=== PATIENT | female | born 1940 | race Caucasian/White ===

== ENCOUNTER 2018-04-07 11:35 | Inpatient (IN) ==
--- NOTE | 2018-04-07 12:12 | Emergency Department Note ---
General Adult HPI - General Source: RN notes reviewed Mode of arrival: EMS Limitations: no limitations <Holly Iyer - Last Filed: 04/07/18 14:05> <Marialuisa Rojas - Last Filed: 04/07/18 15:31> - General Chief complaint: Altered Mental Status Stated complaint: weakness, confusion Time Seen by Provider: 04/07/18 11:40 - History of Present Illness HPI Narrative: 77-year-old female in ED from [facility]. Patient advises she does not know why she is here. Patient states she is normally ambulatory. Patient states she has no pain, no difficulty breathing, no shortness of breath. Patient does know that she is in the ER at [facility] but does not know why. Staff advised patient has become increasingly more confused. She did have a urinary tract infection end of February which she was placed on doxycycline and finished her last dose March 30. (Holly Iyer) - Related Data Home Medications Medication Instructions Recorded Confirmed Acetaminophen [Acetaminophen ER] 650 mg PO Q4HP PRN 11/09/17 12/02/17 Fluticasone Hfa 110Mcg [Flovent 3 puff INH BIDP PRN 11/09/17 12/02/17 Hfa 110Mcg] Losartan Potassium [Cozaar] 100 mg PO QDAY 11/09/17 12/02/17 Proair Hfa 1 - 2 puff INH Q4-6HP PRN 11/09/17 12/02/17 Varenicline Tartrate [Chantix] 1 tab PO BID 11/09/17 12/02/17 Bisacodyl [Dulcolax] 10 mg NC DAILYP PRN 12/02/17 12/02/17 Fluticasone/Salmeterol [Advair 1 puff INH BID 12/02/17 12/02/17 250-50 Diskus] Glatiramer Acetate [Copaxone] 40 mg SQ .COMPLEX 12/02/17 12/02/17 Na Phos,M-B/Na Phos,Di-Ba [Fleets 1 dose NC DAILYP PRN 12/02/17 12/02/17 Adult] Warfarin [Coumadin] 4 mg PO QDAY 12/02/17 12/02/17 Previous Rx's Medication Instructions Recorded fluticasone-salmeterol 115 mcg-21 2 inh INHALATION Q12H #12 g 03/14/17 mcg/actuation HFA aerosol inhaler famotidine 20 mg tablet 20 mg PO BID #180 tab 08/02/17 fluoxetine 20 mg capsule 60 mg PO QDAY #90 cap 08/08/17 folic acid 1 mg tablet 1 mg PO QDAY #90 tab 09/06/17 HYDROcodone/APAP 5/325MG [[place] 1 tab PO Q4HP PRN #20 tab 11/07/17 5-325Mg] Docusate Sodium [Colace] 100 mg PO BID #60 cap 11/13/17 ALPRAZolam [Xanax] 0.5 mg PO QHS #30 tab 11/14/17 Multivitamin [One Daily] 1 each PO DAILY #90 tab 11/14/17 Azithromycin [Zithromax] 250 mg PO DAILY #4 tab 12/02/17 predniSONE [Prednisone] 20 mg PO DAILY #23 tab 12/02/17 Acetaminophen [Tylenol Extra 500 mg PO Q6H PRN #30 tab 03/24/18 Strength] Allergies Allergy/AdvReac Type Severity Reaction Status Date / Time Erythromycin Base Allergy Severe Swelling Verified 03/24/18 03:28 of Lip/Tongue/Throat Penicillins Allergy Severe Anaphylaxis Verified 03/24/18 03:28 Cefaclor [From Ceclor] Allergy Mild skin Verified 03/24/18 03:28 reaction codeine AdvReac Intermediate Hallucinati Verified 03/24/18 03:28 ng Sulfa (Sulfonamide AdvReac Intermediate Unresponsiv Verified 03/24/18 03:28 Antibiotics) e rivaroxaban [From Xarelto] AdvReac Mild Dizziness Verified 03/24/18 03:28 tiotropium AdvReac Mild vision Verified 03/24/18 03:28 [From Spiriva with changes HandiHaler] Review of Systems All systems ED: reviewed and negative except as stated. <Holly Iyer - Last Filed: 04/07/18 14:05> Past Medical History - Past Medical History Medical history: Reports: COPD, hypertension, other Psychiatric history: Reports: anxiety, depression Surgical history ED: Reports: non-contributory - Social History smoking status: Former smoker <Holly Iyer - Last Filed: 04/07/18 14:05> - Past Medical History [facility] Narrative: All Active Problems Humerus fracture (Acute) Community acquired pneumonia (Acute) Lumbar radiculopathy (Acute) Closed fracture of lumbar vertebral body (Chronic) Multiple sclerosis (Acute) Chronic anticoagulation (Acute) Antalgic gait (Chronic) Compression fracture of lumbar vertebra (Acute) Seasonal allergies (Chronic) COPD (chronic obstructive pulmonary disease) (Chronic) Snoring (Chronic) Insomnia (Chronic) Depression with anxiety (Chronic) Tobacco abuse (Chronic) Multiple sclerosis (Chronic) 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 Absent: conjunctival injection ENT: normal oropharynx, mucous membranes moist, TM's normal bilaterally, normal external ear exam Neck: Present: normal inspection. Absent: tenderness, lymphadenopathy Chest: Present: normal inspection, symmetric chest wall rise. Absent: tenderness Respiratory: Present: rales/crackles (bilateral and throughout right side) Cardiovascular: Present: regular rate, normal rhythm. Absent: systolic murmur, diastolic murmur Abdominal: Present: soft, normal bowel sounds. Absent: distention, tenderness, guarding, rebound, rigidity Extremities: Present: normal inspection. Absent: pedal edema Back: Present: normal inspection. Absent: tenderness, CVA tenderness (R), CVA tenderness (L) Neurological: Present: alert, CN II-XII intact, normal gait Psychiatric: Present: normal affect, normal mood. Absent: depressed, agitated, anxious Skin: Present: warm, dry, intact, normal color. Absent: cyanosis, diaphoresis, erythema <Holly Iyer - Last Filed: 04/07/18 14:05> Course <Marialuisa Rojas - Last Filed: 04/07/18 15:31> Course Narrative: Report received from Holly at 1400 and care assumed by myself- Milind Rojas [employer] Patient has required 1-2 L of oxygen to keep oxygen saturations 90% or above during her ER visit. She also continues with a moist cough. Dr. Zafar, with radiology, just called reports of bilateral pneumonia. At 1520 I did speak with the hospitalist, Dr. Souza who agrees to accept this patient. Patient started on Levaquin and Zosyn, blood cultures and lactic acid are pending. (Marialuisa Rojas) Vital Signs Temperature 98.1 F 04/07/18 11:36 Pulse Rate 89 04/07/18 11:36 Respiratory Rate 16 04/07/18 11:36 Blood Pressure 121/77 04/07/18 11:36 Pulse Oximetry (%) 97 04/07/18 11:36 Temperature 98.1 F 04/07/18 11:36 Pulse Rate 81 04/07/18 14:05 Respiratory Rate 16 04/07/18 11:36 Blood Pressure 128/52 04/07/18 14:02 Pulse Oximetry (%) 94 04/07/18 14:05 Medical Decision Making - Medical Records Medical records reviewed: Yes I reviewed the patient's medical records. - Lab Data Result diagrams: 04/07/18 12:18 04/07/18 12:18 <Holly Iyer - Last Filed: 04/07/18 14:05> - Lab Data Lab results reviewed: Yes I reviewed the patient's lab results. Result diagrams: 04/07/18 12:18 04/07/18 12:18 - Radiology Data Radiology results reviewed: Yes I reviewed the patient's radiology results. <CrystalMarialuisa - Last Filed: 04/07/18 15:31> - MDM Narrative Medical decision making narrative: With this provider was assessing patient SPO2 was 89%, patient did have cold fingers and pleth was not adequate. RN warmed patient's hands and gained a strong plus and patient was at 85%. Patient states she is not on oxygen at home. ABG ordered with no abnormal values. PH 7.51, PCO2 33, PO2 54. After XR read, provided 80mg IM injection [id number]. Pt with WBC 15.9, waiting on UA. End of this providers shift, provided pt hostory and current diagnostics to BASHIR Elam for continuation of care. (Holly Iyer) - Medical Records Reviewing patient's records from [place] patient does have multiple sclerosis, primary essential hypertension, COPD. (Holly Iyer - Lab Data Lab Results 04/07/18 04/07/18 04/07/18 Range/Units 12:18 12:18 12:18 WBC 15.9 H (4.5-11.0) K/mcL RBC 4.40 (4.00-5.20) M/mcL Hgb 13.3 (12.0-15.0) g/dL Hct 40.9 (36.0-48.0) % MCV 92.9 (80.0-100.0) fL MCH 30.2 (26.0-34.0) pg MCHC 32.5 (31.0-36.0) g/dL RDW 12.8 (11.5-14.5) % Plt Count 309 (140-440) K/mcL MPV 7.4 (7.4-10.4) fL Gran % 90.3 H (38.0-78.0) % Lymph % (Auto) 4.6 L (15.5-49.0) % [place] % (Auto) 5.1 (1.0-12.0) % Eos % (Auto) 0 (0.0-7.0) % Baso % (Auto) 0 (0.0-2.0) % Gran # 14.4 H (1.8-8.0) K/mcL Lymph # (Auto) 0.7 L (1.5-4.8) K/mcL [place] # (Auto) 0.8 (0.1-0.9) K/mcL Eos # (Auto) 0 (0.0-0.7) K/mcL Baso # (Auto) 0 (0.0-0.3) K/mcL VBG Lactic Acid 1.9 (0.5-2.0) mmol/L Sodium 137 (133-145) mmol/L Potassium 4.2 (3.3-5.1) mmol/L Chloride 98 (96-108) mmol/L Carbon Dioxide 26 (22-30) mmol/L Anion Gap 13.0 (8-16) BUN 20 (8-23) mg/dl Creatinine 0.9 (0.6-1.1) mg/dl GFR Calculation 63 Glucose 144 H (70-105) mg/dL Calcium 9.3 (8.6-10.4) mg/dl Total Bilirubin 0.6 (0.0-1.0) mg/dL AST 22 (0-37) U/l ALT 13 (0-40) U/l Alkaline Phosphatase 151 H (39-117) U/L Total Protein 7.4 (5.9-8.4) gm/dL Albumin 3.7 (3.2-5.2) gm/dL Globulin 3.7 (2.2-3.7) gm/dL Albumin/Globulin Ratio 1.0 (1.0-2.3) Urine Color Urine Appearance Urine pH (5.0-9.0) Ur Specific [place] (1.000-1.035) Urine Protein (NEG) mg/dL Urine Glucose (UA) (NEG) mg/dL Urine Ketones (NEG) mg/dL Urine Occult Blood (<0.03) mg/dL Urine Nitrate (NEG) Urine Bilirubin (NEG) mg/dL Urine Urobilinogen (NEG) mg/dL Ur Leukocyte Esterase (NEG) /uL Urine RBC (0-1) /hpf Urine WBC (0-4) /hpf Ur Squamous Epith Cells (0-4) /hpf Urine Bacteria (0) /hpf Hyaline Casts (0-2) /lpf Urine Mucus (0) /hpf Ur Culture Indicated? 04/07/18 Range/Units 13:09 WBC (4.5-11.0) K/mcL RBC (4.00-5.20) M/mcL Hgb (12.0-15.0) g/dL Hct (36.0-48.0) % MCV (80.0-100.0) fL MCH (26.0-34.0) pg MCHC (31.0-36.0) g/dL RDW (11.5-14.5) % Plt Count (140-440) K/mcL MPV (7.4-10.4) fL Gran % (38.0-78.0) % Lymph % (Auto) (15.5-49.0) % [place] % (Auto) (1.0-12.0) % Eos % (Auto) (0.0-7.0) % Baso % (Auto) (0.0-2.0) % Gran # (1.8-8.0) K/mcL Lymph # (Auto) (1.5-4.8) K/mcL [place] # (Auto) (0.1-0.9) K/mcL Eos # (Auto) (0.0-0.7) K/mcL Baso # (Auto) (0.0-0.3) K/mcL VBG Lactic Acid (0.5-2.0) mmol/L Sodium (133-145) mmol/L Potassium (3.3-5.1) mmol/L Chloride (96-108) mmol/L Carbon Dioxide (22-30) mmol/L Anion Gap (8-16) BUN (8-23) mg/dl Creatinine (0.6-1.1) mg/dl GFR Calculation Glucose (70-105) mg/dL Calcium (8.6-10.4) mg/dl Total Bilirubin (0.0-1.0) mg/dL AST (0-37) U/l ALT (0-40) U/l Alkaline Phosphatase (39-117) U/L Total Protein (5.9-8.4) gm/dL Albumin (3.2-5.2) gm/dL Globulin (2.2-3.7) gm/dL Albumin/Globulin Ratio (1.0-2.3) Urine Color Kristen Urine Appearance Hazy Urine pH 5.0 (5.0-9.0) Ur Specific [place] 1.028 (1.000-1.035) Urine Protein 100 A (NEG) mg/dL Urine Glucose (UA) Negative (NEG) mg/dL Urine Ketones 20 A (NEG) mg/dL Urine Occult Blood Neg (<0.03) mg/dL Urine Nitrate Neg (NEG) Urine Bilirubin Neg (NEG) mg/dL Urine Urobilinogen 4.0 A (NEG) mg/dL Ur Leukocyte Esterase Neg (NEG) /uL Urine RBC 2 H (0-1) /hpf Urine WBC 3 (0-4) /hpf Ur Squamous Epith Cells 1 (0-4) /hpf Urine Bacteria 0 (0) /hpf Hyaline Casts 1 (0-2) /lpf Urine Mucus Many A (0) /hpf Ur Culture Indicated? No Disposition <Holly Iyer - Last Filed: 04/07/18 14:05> Pt seen by AGRISCIENCE INSTRUCTOR/PA only: Yes Time of Disposition: 15:30 <Marialuisa Rojas - Last Filed: 04/07/18 15:31> Clinical Impression: Altered mental status, Pneumonia, Hypoxia Disposition: Xfer As Outpt/Obs ([facility]) Condition: Fair Referrals: Ag Charles MD [Primary Care Provider] -
[2018-04-07] MEDS ORDERED: IPRATROPIUM/ALBUTEROL 3 ML AMPUL.NEB NEB ONE ×2 (12:42→18:05)
[2018-04-07 13:03] LABS: Basophils # (Auto) 0 K/mcL (0.0-0.3); Basophils % (Auto) 0 % (0.0-2.0); Eosinophils # (Auto) 0 K/mcL (0.0-0.7); Eosinophils % (Auto) 0 % (0.0-7.0); Granulocytes % (Auto) 90.3 % (38.0-78.0); Lymphocytes # (Auto) 0.7 K/mcL (1.5-4.8); Lymphocytes % (Auto) 4.6 % (15.5-49.0); Mean Cell Volume 92.9 fL (80.0-100.0); Mean Corpuscular HGB Conc 32.5 g/dL (31.0-36.0); Monocytes # (Auto) 0.8 K/mcL (0.1-0.9); Monocytes % (Auto) 5.1 % (1.0-12.0); Platelet Count 309 K/mcL (140-440); Red Cell Distribution Width 12.8 % (11.5-14.5)
[2018-04-07 13:21] LABS: ALT/SGPT 13 U/l (0-40); Albumin 3.7 gm/dL (3.2-5.2); Alkaline Phosphatase 151 U/L (39-117); Blood Urea Nitrogen 20 mg/dl (8-23)
[2018-04-07] MEDS ORDERED: methylPREDNISolone SOD SUCC 125 MG/2 ML VIAL IM ONE (13:33)
--- NOTE | 2018-04-07 13:34 | XRay Report ---
HISTORY: Cough, weakness and confusion FINDINGS: There are prominent increased interstitial lung markings throughout both lungs. Lung volumes are normal. There is no consolidating infiltrate, mass or pleural effusion. The heart size is normal. The pulmonary vessels are obscured by the diffuse interstitial lung disease. The mediastinum and enrike are normal. There is an old healed fracture the proximal left humerus. Comparison with the prior chest CT done on 12/02/17 shows the interstitial lung disease has become worse. Based upon the prior CT there is mild emphysema in both upper lobes and there was a significant amount of mucus within the airways on the prior study. IMPRESSION: Diffuse interstitial lung disease. This is probably an active inflammatory process such as bronchitis superimposed upon underlying mild COPD. Interpreted and Authenticated by: Chino Zafar 04/07/18
[2018-04-07 14:11] LABS: Appearance,Urine HAZY; Bacteria,Urine 0 /hpf (0); Bilirubin,Urine NEG (NEG); Color,Urine AMBER; Glucose,Urine (UA) NEGATIVE (NEG); Leukocyte Esterase,Urine NEG /uL (NEG); Mucus,Urine MANY /hpf (0); Protein,Urine 100 mg/dL (NEG); Specific Gravity,Urine 1.028 (1.000-1.035); Urine Blood NEG mg/dL (<0.03); Urine Hyaline Cast 1 /lpf (0-2); Urine RBC 2 /hpf (0-1); Urine Squamous Epithelial Cell 1 /hpf (0-4); Urine WBC 3 /hpf (0-4)
[2018-04-07] MEDS ORDERED: LEVOFLOXACIN 500 MG/100 ML BAG IV ONE (15:24)
[2018-04-07] MEDS ORDERED: PIPERACILLIN SODIUM/TAZOBACTAM 3.375 GM in DEXTROSE 5% IN WATER 50 ML IV ONE (15:25)
[2018-04-07] MEDS ORDERED: PIPERACILLIN SODIUM/TAZOBACTAM 3.375 GM in DEXTROSE 5% IN WATER 50 ML IV SCH (16:45)
[2018-04-07] MEDS ORDERED: POTASSIUM CHLORIDE 20 MEQ PACKET PO PRN (16:45)
[2018-04-07] MEDS ORDERED: ONDANSETRON 4 MG/2 ML VIAL IV PRN (16:45)
[2018-04-07] MEDS ORDERED: MAGNESIUM SULFATE 2 GM/50 ML BAG IV PRN (16:45)
[2018-04-07] MEDS ORDERED: guaiFENesin/CODEINE 10 ML UDC PO PRN (16:45)
--- NOTE | 2018-04-07 17:49 | Internal Med History&Physical ---
Medical - H&P: HPI Patient information: Note initiated : 04/07/18 at 5:44 pm Service Date, if different from initiated Date: [] Patient: Argelia Baker a 77 y/o F admitted on 04/07/18 for weakness, confusion. Chief Complaint: [] Chief complaint: confusion and weakness History of present illness: Ms. Baker is a 77 year old F with a known history of COPD/history of DVT on anticoagulation who presents from [facility] living with worsening shortness of breath along with weakness, effort intolerance and in a confused state. Most of the history is obtained from review of medical record, no family members were present. Patient was initiated on oxygen/bronchodilators after initial imaging reveals bilateral pneumonia. Patient was started on antibiotics after cultures were drawn. Hospitalist service consulted At the time of evaluation patient has much improved and is alert and able to answer most questions. She is anxious and notably labored. She however does not know why she is in the hospital. She endorses to sick contacts at the living facility. She also has been experiencing chills without fever over the last couple of days. She denies diarrhea, dysuria, headache, photophobia or joint pain. She further denies chest pain but endorses to produce sputum. 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) Hypertension, essential (Chronic) Deep venous embolism and thrombosis (Chronic) Closed rib fracture (Resolved) Wheezing (Resolved) Asthma (Ruled-out) Surgical history: Hx of foot surgery (Chronic) Tonsillectomy Pertinent family history: Father Pneumonia Mother Heart problem Social history: 1 pack per day cigarettes Drinks roughly 2 times a week 3 drinks per episode Ambulates with a cane Lives by herself at [facility] Medical - H&P: Meds Home Medications Medication Instructions Recorded Confirmed Type fluticasone-salmeterol 115 mcg-21 2 inh INHALATION Q12H #12 g 03/14/17 04/08/18 Rx mcg/actuation HFA aerosol inhaler famotidine 20 mg tablet 20 mg PO BID #180 tab 08/02/17 04/08/18 Rx fluoxetine 20 mg capsule 60 mg PO QDAY #90 cap 08/08/17 04/08/18 Rx folic acid 1 mg tablet 1 mg PO QDAY #90 tab 09/06/17 04/08/18 Rx Acetaminophen [Acetaminophen ER] 650 mg PO Q6HP PRN 11/09/17 04/08/18 History Fluticasone Hfa 110Mcg [Flovent 3 puff INH BIDP PRN 11/09/17 04/08/18 History Hfa 110Mcg] Losartan Potassium [Cozaar] 100 mg PO QDAY 11/09/17 04/08/18 History Proair Hfa 1 - 2 puff INH Q4-6HP PRN 11/09/17 04/08/18 History Varenicline Tartrate [Chantix] 1 tab PO BID 11/09/17 04/08/18 History Docusate Sodium [Colace] 100 mg PO BID #60 cap 11/13/17 04/08/18 Rx ALPRAZolam [Xanax] 0.5 mg PO QHS #30 tab 11/14/17 04/08/18 Rx Multivitamin [One Daily] 1 each PO DAILY #90 tab 11/14/17 04/08/18 Rx Aspirin [Adult Aspirin] 81 mg PO DAILY 04/08/18 04/08/18 History Epsom Salt 1 each TOPICAL PRN PRN 04/08/18 04/08/18 History HYDROcodone/APAP 5/325MG [[place] 1 - 2 tab PO Q4HP PRN 04/08/18 04/08/18 History 5-325Mg] Ipratropium/Albuterol Sulfate 3 ml IH Q4HP PRN 04/08/18 04/08/18 History [Iprat-Albut 0.5-3(2.5) mg/3 ml] Allergies Allergy/AdvReac Type Severity Reaction Status Date / Time Erythromycin Base Allergy Severe Swelling Verified 03/24/18 03:28 of Lip/Tongue/Throat Penicillins Allergy Severe Anaphylaxis Verified 03/24/18 03:28 Cefaclor [From [facility]] Allergy Mild skin Verified 03/24/18 03:28 reaction codeine AdvReac Intermediate Hallucinati Verified 03/24/18 03:28 ng Sulfa (Sulfonamide AdvReac Intermediate Unresponsiv Verified 03/24/18 03:28 Antibiotics) e rivaroxaban [From Xarelto] AdvReac Mild Dizziness Verified 03/24/18 03:28 tiotropium AdvReac Mild vision Verified 03/24/18 03:28 [From Spiriva with changes HandiHaler] Medical - H&P: Exam - Constitutional Vitals: Temp Pulse Resp BP Pulse Ox 99.0 F 86 24 H 114/70 92 04/07/18 16:45 04/07/18 16:45 04/07/18 16:45 04/07/18 16:45 04/07/18 16:45 General appearance: no acute distress Exam: Patient alert with confusion improving Eye movements symmetrical Oral cavity dry No ear nose discharge Head normocephalic Neck no lymphadenopathy S1-S2 occasionally irregular, ESM grade 1 Basilar crackles/expiratory rhonchi Abdomen soft lower extremity minimal Edema Skin no suspicious lesion Psych alert cooperative Neuro confused Medical - H&P: Reslt - Labs CBC & Chem 7: 04/08/18 03:40 04/08/18 03:40 Labs: Short CBC 04/07/18 Range/Units 12:18 WBC 15.9 H (4.5-11.0) K/mcL Hgb 13.3 (12.0-15.0) g/dL Hct 40.9 (36.0-48.0) % Plt Count 309 (140-440) K/mcL BMP 04/07/18 12:18 Sodium 137 Potassium 4.2 Chloride 98 Carbon Dioxide 26 BUN 20 Creatinine 0.9 Glucose 144 H Calcium 9.3 Liver Function 04/07/18 Range/Units 12:18 Total Bilirubin 0.6 (0.0-1.0) mg/dL AST 22 (0-37) U/l ALT 13 (0-40) U/l Alkaline Phosphatase 151 H (39-117) U/L Albumin 3.7 (3.2-5.2) gm/dL Urine 04/07/18 Range/Units 13:09 Urine Color Kristen Urine Appearance Hazy Urine pH 5.0 (5.0-9.0) Ur Specific [place] 1.028 (1.000-1.035) Urine Protein 100 A (NEG) mg/dL Urine Glucose (UA) Negative (NEG) mg/dL Medical - H&P: A/P (1) Bilateral pneumonia Current visit: Yes Status: Acute * Bilateral pneumonia-likely hospital-acquired versus aspiration. Continue aspiration precaution/ST eval. Continue empiric coverage for nosocomial patho gens with Levaquin/Zosyn. Inpatient admit in light of pneumonia severity index over 100 * Sepsis-sofa score 3. White count 15.9. Continue management per guidelines * Hypoxic history failure -continue supplemental oxygen/pulmonary toilet/bronchodilators * Acute mental status change secondary to pneumonia. Clinically improving since arrival. Continue close monitoring * COPD exacerbation-secondary to above continue bronchodilators. * Anxiety depression continue home meds * History of DVTs in the past continue anticoagulation on Coumadin * History of hypertension * Full CODE * Prophylaxis Coumadin Plan * Broad antibiotic coverage * Sepsis management per guidelines * Pre-existing medical condition management home meds * PT OT ST eval * Inpatient admit
[2018-04-07] MEDS: 0.9 % SODIUM CHLORIDE 1,000 ML IV SCH (18:01)
[2018-04-07] MEDS ORDERED: BUDESONIDE 0.5 MG/2 ML AMPUL.NEB NEB ONE (18:05)
[2018-04-07] MEDS ORDERED: LEVOFLOXACIN 250 MG/50 ML BAG IV ONE (18:45)
[2018-04-07] MEDS: IPRATROPIUM/ALBUTEROL 3 ML AMPUL.NEB NEB SCH ×2 (19:01→23:50)
[2018-04-07] MEDS: BUDESONIDE 0.5 MG/2 ML AMPUL.NEB NEB SCH (19:02)
--- NOTE | 2018-04-07 20:01 | Cat Scan Report ---
CLINICAL INFORMATION: Hypoxia, shortness of breath and elevated white blood cell count COMPARISON: 02/01/18 TECHNIQUE: 70 cc of Isovue-300 was injected intravenously, and 20 seconds later, 2.5 mm helical slices were obtained from the lung apices through the bases. Following reconstruction, 2.5 mm sagittal, coronal and axial reformations were processed. The exam was reviewed at lung, mediastinal and bone window. 7 mm axial MIPS were also obtained the radiation exposure was limited using dose reduction technology. FINDINGS: There is mild emphysema in both lungs with the greatest involvement in the upper lobes and lingula. There is a random distribution of interstitial infiltrates in both lungs. The greatest involvement is in the right upper lobe milder involvement in the superior segment lingula and in both lower lobes. There is minor involvement in the right middle lobe. There is no associated bronchiectasis or pleural effusion. The pulmonary arteries are normal without evidence of emboli. The heart is normal in size and contour. There are several calcified plaques in the coronary arteries. The aorta is normal in caliber. There is a bone growth along the medial aspect of the right fifth rib adjacent to the spine. There is a chronic stable finding and appears to be a pseudoarthrosis between two adjacent ribs. This is an incidental finding. Patient has old mild to moderate wedge compression fracture at T12. This has remained stable. IMPRESSION: Patchy distribution of interstitial infiltrates in both lungs. This is a nonspecific pattern which could be due to a viral pneumonia, atypical bacterial pneumonia, noninfectious inflammatory disease such as early phase of usual interstitial pneumonia, desquamative interstitial pneumonia or nonspecific interstitial pneumonia. A hypersensitivity reaction may have a similar pattern. Harish Rojas was called with the results Interpreted and Authenticated by: Chino Zafar 04/07/18
[2018-04-07] MEDS: HEPARIN 5,000 UNIT/ML VIAL SQ SCH (21:10)
[2018-04-07] MEDS: ALPRAZolam 0.5 MG TABLET PO PRN (21:11)
[2018-04-07] MEDS: DOCUSATE SODIUM 100 MG CAPSULE PO SCH (21:14)
[2018-04-07] MEDS: SENNOSIDES/DOCUSATE SODIUM 1 TAB TABLET PO SCH (21:14)
[2018-04-07] MEDS: 0.9 % SODIUM CHLORIDE 10 ML SYRINGE IV SCH (21:14)
[2018-04-07] MEDS: CEFEPIME 1 GM VIAL IV SCH (22:14)
[2018-04-08] MEDS: IPRATROPIUM/ALBUTEROL 3 ML AMPUL.NEB NEB SCH ×6 (03:21→22:18)
[2018-04-08] MEDS: 0.9 % SODIUM CHLORIDE 10 ML SYRINGE IV SCH ×3 (05:24→20:37)
[2018-04-08 06:14] LABS: Mean Cell Volume 92.4 fL (80.0-100.0); Mean Corpuscular HGB Conc 32.7 g/dL (31.0-36.0); Platelet Count 287 K/mcL (140-440); Red Cell Distribution Width 13.5 % (11.5-14.5)
[2018-04-08 07:01] LABS: Erythrocyte Sedimentation Rate 80 mm/hr (0-20)
[2018-04-08 07:24] LABS: ALT/SGPT 11 U/l (0-40); Albumin 2.9 gm/dL (3.2-5.2); Albumin/Globulin Ratio 0.8 (1.0-2.3); Alkaline Phosphatase 139 U/L (39-117); Bilirubin,Direct < 0.2 mg/dL (0.0-0.3); Blood Urea Nitrogen 28 mg/dl (8-23); C-Reactive Protein 22.4 mg/dl (0.0-0.8); Gamma Glutamyl Transpeptidase 38 U/L (5-36); Uric Acid 5.1 mg/dL (2.5-8.0)
[2018-04-08] MEDS: BUDESONIDE 0.5 MG/2 ML AMPUL.NEB NEB SCH ×2 (07:42→22:18)
[2018-04-08 07:54] LABS: Lymphocytes % 8 % (15-49); Monocytes % (Manual) 3 % (1-12); Platelet Estimate NORMAL (NORMAL); RBC Morphology NORMAL (NORMAL); Segmented Neutrophils % 89 % (38-78)
[2018-04-08] MEDS: HEPARIN 5,000 UNIT/ML VIAL SQ SCH ×2 (08:52→20:38)
[2018-04-08] MEDS: MULTIVIT,THER IRON,CA,FA & MIN 1 TABLET PO SCH (08:52)
[2018-04-08] MEDS: DOCUSATE SODIUM 100 MG CAPSULE PO SCH ×2 (08:52→20:37)
[2018-04-08] MEDS: CEFEPIME 1 GM VIAL IV SCH ×2 (08:55→20:38)
--- NOTE | 2018-04-08 09:48 | Emergency Department Note ---
ED Note Addendum Note Addendum: I reviewed this case of Holly RiceJarrett and Marialuisa Mckeonanayeli CAMEJO as they changed shift while this patient was here. Anyways I agree with their evaluation management documentation. In particular discussed the need for admission for pneumonia. I also briefly discussed the case with Dr. Chino Zafar, radiologist as her CT scan was somewhat remarkable
[2018-04-08] MEDS ORDERED: FLUTICASONE HFA 110MCG INHALER INH PRN (10:31)
[2018-04-08] MEDS ORDERED: ALBUTEROL SULFATE 1 PUFF INHALER INH PRN (10:31)
[2018-04-08] MEDS ORDERED: NON FORMULARY MEDICATION 1 DOSE MISCELL (Acetaminophen [Acetaminophen Er] 650 MG) PO PRN (10:31)
--- NOTE | 2018-04-08 10:38 | Internal Med Progress Note ---
Medical - PN: Subj Patient information: Note initiated : 04/08/18 at 10:35 am Service Date, if different from initiated Date: [] Patient: Argelia Baker a 77 y/o F admitted on 04/07/18 for weakness, confusion. Chief Complaint: [] Interval history: Ms. Baker is a 77 year old F with a known history of COPD/history of DVT on anticoagulation who [facility] assisted living with worsening shortness of breath along with weakness, effort intolerance and in a confused state. Most of the history is obtained from review of medical record, no family members were present. Patient was initiated on oxygen/bronchodilators after initial imaging reveals bilateral pneumonia. Patient was started on antibiotics after cultures were drawn. Hospitalist service consulted At the time of evaluation patient has much improved and is alert and able to answer most questions. She is anxious and notably labored. She however does not know why she is in the hospital. She endorses to sick contacts at the living facility. She also has been experiencing chills without fever over the last couple of days. She denies diarrhea, dysuria, headache, photophobia or joint pain. She further denies chest pain but endorses to produce sputum. 04/08-patient doing a lot better. No overnight events. No concerns per staff. No fever chills nausea vomiting. White count downtrending from 15.9-14.3. CRP 22. CT chest patchy infiltrates bilateral. Continue empiric atypical coverage. Await strep pneumo/mycoplasma and sputum cultures. Continuous ST eval/aspiration precaution/PT OT - Constitutional Vitals: Vital Signs Temp Pulse Resp BP Pulse Ox 100.1 F H 73 20 114/62 92 04/08/18 07:46 04/08/18 07:52 04/08/18 07:52 04/08/18 07:46 04/08/18 07:46 Period Temp Pulse Resp BP Sys/Giordano Pulse Ox Last 24 Hr 98.0 F-100.1 F 73-89 16-32 94-139/52-77 86-97 Intake and Output 04/07/18 04/08/18 04/08/18 21:59 05:59 13:59 Intake Total 480 Output Total 1 1 Balance 479 -1 Weight 122 lb Intake & Output: Intake & Output 04/07/18 04/08/18 04/08/18 21:59 05:59 13:59 Intake Total 480 Output Total 1 1 Balance 479 -1 Weight 122 lb Intake: Oral 480 Output: # of times incontinent of urine 1 1 Other: Meal Dinner Percent of Meal Consumed 75% Feeding Ability Independent Urine Appearance Straight Clear Urine Color Straight Light Kristen Urine Odor Straight Normal Stool Size Moderate Stool Color Brown Stool Consistency Loose # of times incontinent of 1 Bowels General appearance: no acute distress Exam: Alert oriented sitting on chair No telemetry events No anxiety No labored breathing Nondistended abdomen Medical - PN: Obj Da - Labs CBC & Chem 7: 04/08/18 03:40 04/08/18 03:40 Labs: Abnormal Lab Results 04/08/18 04/08/18 04/07/18 03:40 03:40 13:09 WBC 14.3 H RBC 3.70 L Hgb 11.2 L Hct 34.2 L Gran % Lymph % (Auto) Gran # Lymph # (Auto) Seg Neutrophils % 89 H Lymphocytes % 8 L ESR 80 H BUN 28 H Glucose 106 H GGT 38 H Alkaline Phosphatase 139 H Lactate Dehydrogenase 283 H C-Reactive Protein 22.4 H Albumin 2.9 L Albumin/Globulin Ratio 0.8 L Urine Protein 100 A Urine Ketones 20 A Urine Urobilinogen 4.0 A Urine RBC 2 H Urine Mucus Many A 04/07/18 04/07/18 12:18 12:18 WBC 15.9 H RBC Hgb Hct Gran % 90.3 H Lymph % (Auto) 4.6 L Gran # 14.4 H Lymph # (Auto) 0.7 L Seg Neutrophils % Lymphocytes % ESR BUN Glucose 144 H GGT Alkaline Phosphatase 151 H Lactate Dehydrogenase C-Reactive Protein Albumin Albumin/Globulin Ratio Urine Protein Urine Ketones Urine Urobilinogen Urine RBC Urine Mucus Meds: Medications Acetaminophen (Tylenol) 650 mg PO Q4-6HP PRN PRN Reason: PAIN/FEVER > 101 Albuterol/Ipratropium (Duoneb) 3 ml NEB Q4HRT [facility] Last Admin: 04/08/18 07:41 Dose: 3 ml Documented by: Alprazolam (Xanax) 0.5 mg PO HSP PRN PRN Reason: Insomnia Last Admin: 04/07/18 21:11 Dose: 0.5 mg Documented by: Budesonide (Pulmicort) 0.5 mg NEB Q12 [facility] Last Admin: 04/08/18 07:42 Dose: 0.5 mg Documented by: Cefepime HCl (Maxipime) 1 gm IV Q12H [facility] Last Admin: 04/08/18 08:55 Dose: 1 gm Documented by: Docusate Sodium (Colace) 100 mg PO BID [facility] Last Admin: 04/08/18 08:52 Dose: 100 mg Documented by: Docusate Sodium (Colace) 100 mg PO BID [facility] Famotidine (Pepcid) 20 mg PO BID [facility] Fluoxetine HCl (Prozac) 60 mg PO QDAY [facility] Fluticasone Propionate (Flovent Hfa 110mcg) 3 puff INH BIDP PRN PRN Reason: sob Folic Acid (Folic Acid) 1 mg PO QDAY [facility] Guaifenesin/Codeine Phosphate (Robitussin Ac) 10 ml PO Q4HP PRN PRN Reason: Cough Heparin Sodium (Porcine) (Heparin) 5,000 unit SQ Q12 [facility] Last Admin: 04/08/18 08:52 Dose: 5,000 unit Documented by: Levofloxacin (Levaquin) 750 mg in 150 mls @ 100 mls/hr IV Q48H [facility] Magnesium Sulfate (Magnesium Sulfate) 2 gm in 50 mls @ 50 mls/hr IV UD PRN PRN Reason: MG = or < 1.7 Sodium Chloride (Sodium Chloride 0.9%) 1,000 mls @ 50 mls/hr IV .Q20H [facility] Stop: 04/10/18 04:44 Last Admin: 04/07/18 18:01 Dose: 50 mls/hr Documented by: Acetaminophen (Ofirmev) 850 mg in 85 mls @ 170 mls/hr IV Q6HP PRN PRN Reason: PAIN/FEVER > 101 Iron Carb/Multivit/[place]/Folic Acid (Multivitamin W/Minerals) 1 tab PO DAILY [facility] Last Admin: 04/08/18 08:52 Dose: 1 tab Documented by: Non-Formulary Medication (Acetaminophen [Acetaminophen Er]) 650 mg PO Q6HP PRN PRN Reason: Pain Non-Formulary Medication (Aspirin [Adult Aspirin]) 81 mg PO DAILY [facility] Non-Formulary Medication (Fluticasone/Salmeterol [Advair Hfa 115-21 Mcg Inhaler]) 2 inh INHALATION Q12H [facility] Non-Formulary Medication (Losartan Potassium [Cozaar]) 100 mg PO QDAY [facility] Non-Formulary Medication (Proair Hfa) 1 - 2 puff INH Q4-6HP PRN PRN Reason: Shortness Of Breath Non-Formulary Medication (Varenicline Tartrate [Chantix]) 1 tab PO BID [facility] Ondansetron HCl (Zofran) 4 mg IV Q4-6HP PRN PRN Reason: Nausea And Vomiting Potassium Chloride (Klor-Con) 40 meq PO DAILYP PRN PRN Reason: K+ < 3.5 Senna/Docusate Sodium (Senna Plus Tablet) 1 tab PO HS [facility] Last Admin: 04/07/18 21:14 Dose: Not Given Documented by: Sodium Chloride (Saline Flush) 10 ml IV Q8 [facility] Last Admin: 04/08/18 05:24 Dose: Not Given Documented by: Warfarin Sodium (Coumadin Per Pharmacy) 1 order PO DAILY@1400 [facility] Medical - PN: A/P - Time Spent With Patient Total time spent is greater than 50% in coordination of care (as documented) at patient's floor/unit and/or counseling patient: 25 - 35 minutes (1) Bilateral pneumonia Status: Acute Assessment and plan: * Bilateral pneumonia-likely hospital-acquired versus aspiration. Antibiotic coverage and cefepime/Levaquin. Continue aspiration precaution/ST eval. clinical improvement noted. * Sepsis-sofa score 3. White count downtrending with improving endorgan dysfunction. 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 Continue pulmonary toilet/bronchodilators * Acute mental status change secondary to pneumonia. Clinically improved * COPD exacerbation-secondary to above continue bronchodilators. * Anxiety depression stable on home meds * History of DVTs -continue anticoagulation on Coumadin * History of hypertension * Full CODE * Prophylaxis Coumadin Plan * Sepsis management per guidelines * Broad antibiotic coverage * Pre-existing medical condition management home meds * Rehab support/nutrition per ST/dietitian Current Visit: Yes
[2018-04-08] MEDS: ACETAMINOPHEN 325 MG TABLET PO PRN (13:23)
[2018-04-08] MEDS ORDERED: WARFARIN 4 MG TABLET PO ONE (14:00)
[2018-04-08] MEDS: 0.9 % SODIUM CHLORIDE 1,000 ML IV SCH ×2 (15:00→20:23)
[2018-04-08] MEDS: ALPRAZolam 0.5 MG TABLET PO PRN (20:37)
[2018-04-08] MEDS: SENNOSIDES/DOCUSATE SODIUM 1 TAB TABLET PO SCH (20:37)
[2018-04-08] MEDS: SALMETEROL INH SCH (20:37)
[2018-04-08] MEDS: FLUTICASONE INH SCH (20:37)
[2018-04-08] MEDS: FAMOTIDINE 20 MG TABLET PO SCH (20:37)
[2018-04-08] MEDS: VARENICLINE TARTRATE PO SCH (20:37)
[2018-04-08] MEDS ORDERED: DOCUSATE SODIUM 100 MG CAPSULE PO SCH (21:00)
[2018-04-09] MEDS: ACETAMINOPHEN 850 MG/85 ML BOTTLE IV PRN (01:28)
[2018-04-09] MEDS: IPRATROPIUM/ALBUTEROL 3 ML AMPUL.NEB NEB SCH ×6 (03:01→22:54)
[2018-04-09] MEDS: 0.9 % SODIUM CHLORIDE 10 ML SYRINGE IV SCH ×3 (05:37→22:00)
[2018-04-09 06:10] LABS: Mean Cell Volume 93.6 fL (80.0-100.0); Mean Corpuscular HGB Conc 32.5 g/dL (31.0-36.0); Platelet Count 276 K/mcL (140-440); RBC 3.34 M/mcL (4.00-5.20); Red Cell Distribution Width 13.2 % (11.5-14.5)
--- NOTE | 2018-04-09 06:56 | XRay Report ---
INDICATION: Confusion. Weakness. Chronic lung disease. TECHNIQUE: AP chest x-ray,portable semiupright COMPARISON: Previous chest x-rays dated 04/07/2018, 12/02/2017, 11/09/2017. Previous CT scans dated 04/07/2018 and 12/02/2017 FINDINGS:There is hyperexpansion. Patient has a history of centrilobular emphysema. Diffuse interstitial abnormality, right worse than left. Appearance is consistent with interstitial pneumonia, and is slightly worse since 04/07/2018. No acute consolidation. Heart size and vascularity remain unchanged. Sarah and mediastinum are negative. No pleural fluid. IMPRESSION: 1. Chronic lung disease with hyperexpansion and changes of centrilobular emphysema. 2. Diffuse interstitial infiltrates, right worse than left. Findings are probably secondary to interstitial pneumonia. 3. Right lung appears slightly worse than on 04/07/2018 Interpreted and Authenticated by: Jay Montgomery 04/09/18
[2018-04-09 07:14] LABS: ALT/SGPT 14 U/l (0-40); Albumin 2.7 gm/dL (3.2-5.2); Albumin/Globulin Ratio 0.8 (1.0-2.3); Alkaline Phosphatase 113 U/L (39-117); Bilirubin,Direct < 0.2 mg/dL (0.0-0.3); Blood Urea Nitrogen 28 mg/dl (8-23); Gamma Glutamyl Transpeptidase 31 U/L (5-36); Uric Acid 4.7 mg/dL (2.5-8.0)
[2018-04-09 09:09] LABS: Eosinophils % (Manual) 2 % (0-7); Lymphocytes % 13 % (15-49); Monocytes % (Manual) 5 % (1-12); Platelet Estimate NORMAL (NORMAL); RBC Morphology NORMAL (NORMAL); Segmented Neutrophils % 80 % (38-78)
[2018-04-09] MEDS: LEVOFLOXACIN 750 MG/150 ML BAG IV SCH (09:40)
[2018-04-09] MEDS: BUDESONIDE 0.5 MG/2 ML AMPUL.NEB NEB SCH ×2 (10:07→19:07)
[2018-04-09] MEDS: FOLIC ACID 1 MG TABLET PO SCH (10:10)
[2018-04-09] MEDS: LOSARTAN 50 MG TABLET PO SCH (10:11)
[2018-04-09] MEDS: DOCUSATE SODIUM 100 MG CAPSULE PO SCH ×2 (10:11→21:35)
[2018-04-09] MEDS: ASPIRIN 81 MG TAB.CHEW PO SCH (10:11)
[2018-04-09] MEDS: FLUoxetine HCL 20 MG CAPSULE PO SCH (10:11)
[2018-04-09] MEDS: FAMOTIDINE 20 MG TABLET PO SCH ×2 (10:11→21:35)
[2018-04-09] MEDS: MULTIVIT,THER IRON,CA,FA & MIN 1 TABLET PO SCH (10:11)
[2018-04-09] MEDS: SALMETEROL INH SCH ×2 (10:12→21:35)
[2018-04-09] MEDS: VARENICLINE TARTRATE PO SCH ×2 (10:12→21:35)
[2018-04-09] MEDS: FLUTICASONE INH SCH ×2 (10:12→21:35)
[2018-04-09] MEDS: HEPARIN 5,000 UNIT/ML VIAL SQ SCH ×2 (10:15→21:35)
[2018-04-09] MEDS: CEFEPIME 1 GM VIAL IV SCH ×2 (10:22→21:34)
[2018-04-09] MEDS: ACETAMINOPHEN 325 MG TABLET PO PRN (11:11)
--- NOTE | 2018-04-09 11:45 | Internal Med Progress Note ---
Medical - PN: Subj Patient information: Note initiated : 04/09/18 at 11:41 am Service Date, if different from initiated Date: [] Patient: Argelia Baker a 77 y/o F admitted on 04/07/18 for weakness, confusion. Chief Complaint: [] Interval history: Ms. Baker is a 77 year old F with a known history of COPD/history of DVT on anticoagulation who presents from [facility] with worsening shortness of breath along with weakness, effort intolerance and in a confused state. Most of the history is obtained from review of medical record, no family members were present. Patient was initiated on oxygen/bronchodilators after initial imaging reveals bilateral pneumonia. Patient was started on antibiotics after cultures were drawn. Hospitalist service consulted At the time of evaluation patient has much improved and is alert and able to answer most questions. She is anxious and notably labored. She however does not know why she is in the hospital. She endorses to sick contacts at the living facility. She also has been experiencing chills without fever over the last couple of days. She denies diarrhea, dysuria, headache, photophobia or joint pain. She further denies chest pain but endorses to produce sputum. 04/08-patient doing a lot better. No overnight events. No concerns per staff. No fever chills nausea vomiting. White count downtrending from 15.9-14.3. CRP 22. CT chest patchy infiltrates bilateral. Continue empiric atypical coverage. Await strep pneumo/mycoplasma and sputum cultures. Continuous ST eval/aspiration precaution/PT OT 04/09-clinically much better than previous day. White count down from 15.9-9.6. Cultures negative so far. However getting remarkably response to antibiotics with downtrending white count and improving sepsis will continue course. No overnight fever chills. Currently on 2 L oxygen. Level 3 nectar thick aspirate his knee. Patient demonstrated waxing and waning mental status. Case management to coordinate safe discharge planning likely SNF as she would be high risk returning back to [place]. - Constitutional Vitals: Vital Signs Temp Pulse Resp BP Pulse Ox 98.7 F 76 22 115/60 96 04/09/18 08:00 04/09/18 10:15 04/09/18 10:15 04/09/18 08:00 04/09/18 10:11 Period Temp Pulse Resp BP Sys/Giordano Pulse Ox Last 24 Hr 98.7 F-100.1 F 73-106 14-22 108-142/60-78 2-96 Intake and Output 04/08/18 04/09/18 04/09/18 21:59 05:59 13:59 Intake Total 1180 335 Output Total 2 Balance 1178 335 Weight 124 lb 8 oz Intake & Output: Intake & Output 04/08/18 04/09/18 04/09/18 21:59 05:59 13:59 Intake Total 1180 335 Output Total 2 Balance 1178 335 Weight 124 lb 8 oz Intake: IV 1000 85 Sodium Chloride 0.9% 1,000 ml @ 1000 50 mls/hr IV .Q20H [facility] Rx#: [id number] Oral 180 250 Output: # of times incontinent of urine 2 Other: Meal Dinner Breakfast Percent of Meal Consumed 100% 100% Feeding Ability Independent Assist with Tray Set Up General appearance: no acute distress Exam: Intermittently confused but very pleasant Nonlabored breathing No anxiety Diminished breath sounds bases Normal sinus on telemetry Medical - PN: Obj Da - Labs CBC & Chem 7: 04/09/18 03:13 04/09/18 03:13 Labs: Abnormal Lab Results 04/09/18 04/09/18 04/08/18 03:13 03:13 03:40 WBC RBC 3.34 L Hgb 10.1 L Hct 31.3 L Gran % Lymph % (Auto) Gran # Lymph # (Auto) Seg Neutrophils % 80 H Lymphocytes % 13 L ESR BUN 28 H 28 H Glucose 106 H Calcium 8.5 L GGT 38 H Alkaline Phosphatase 139 H Lactate Dehydrogenase 283 H C-Reactive Protein 22.4 H Albumin 2.7 L 2.9 L Albumin/Globulin Ratio 0.8 L 0.8 L Urine Protein Urine Ketones Urine Urobilinogen Urine RBC Urine Mucus 04/08/18 04/07/18 04/07/18 03:40 13:09 12:18 WBC 14.3 H RBC 3.70 L Hgb 11.2 L Hct 34.2 L Gran % Lymph % (Auto) Gran # Lymph # (Auto) Seg Neutrophils % 89 H Lymphocytes % 8 L ESR 80 H BUN Glucose 144 H Calcium GGT Alkaline Phosphatase 151 H Lactate Dehydrogenase C-Reactive Protein Albumin Albumin/Globulin Ratio Urine Protein 100 A Urine Ketones 20 A Urine Urobilinogen 4.0 A Urine RBC 2 H Urine Mucus Many A 04/07/18 12:18 WBC 15.9 H RBC Hgb Hct Gran % 90.3 H Lymph % (Auto) 4.6 L Gran # 14.4 H Lymph # (Auto) 0.7 L Seg Neutrophils % Lymphocytes % ESR BUN Glucose Calcium GGT Alkaline Phosphatase Lactate Dehydrogenase C-Reactive Protein Albumin Albumin/Globulin Ratio Urine Protein Urine Ketones Urine Urobilinogen Urine RBC Urine Mucus Meds: Medications Acetaminophen (Tylenol) 650 mg PO Q4-6HP PRN PRN Reason: PAIN/FEVER > 101 Last Admin: 04/09/18 11:11 Dose: 650 mg Documented by: Albuterol Sulfate (Ventolin) 1 - 2 puff INH Q4-6HP PRN PRN Reason: Shortness Of Breath Albuterol/Ipratropium (Duoneb) 3 ml NEB Q4HRT [facility] Last Admin: 04/09/18 10:10 Dose: Not Given Documented by: Alprazolam (Xanax) 0.5 mg PO HSP PRN PRN Reason: Insomnia Last Admin: 04/08/18 20:37 Dose: 0.5 mg Documented by: Aspirin (Aspirin) 81 mg PO DAILY [facility] Last Admin: 04/09/18 10:11 Dose: 81 mg Documented by: Budesonide (Pulmicort) 0.5 mg NEB Q12 [facility] Last Admin: 04/09/18 10:07 Dose: 0.5 mg Documented by: Cefepime HCl (Maxipime) 1 gm IV Q12H [facility] Last Admin: 04/09/18 10:22 Dose: 1 gm Documented by: Docusate Sodium (Colace) 100 mg PO BID [facility] Last Admin: 04/09/18 10:11 Dose: 100 mg Documented by: Famotidine (Pepcid) 20 mg PO BID [facility] Last Admin: 04/09/18 10:11 Dose: 20 mg Documented by: Fluoxetine HCl (Prozac) 60 mg PO QDAY [facility] Last Admin: 04/09/18 10:11 Dose: 60 mg Documented by: Fluticasone Propionate (Flovent Hfa 110mcg) 3 puff INH BIDP PRN PRN Reason: sob Folic Acid (Folic Acid) 1 mg PO QDAY [facility] Last Admin: 04/09/18 10:10 Dose: 1 mg Documented by: Guaifenesin/Codeine Phosphate (Robitussin Ac) 10 ml PO Q4HP PRN PRN Reason: Cough Heparin Sodium (Porcine) (Heparin) 5,000 unit SQ Q12 [facility] Last Admin: 04/09/18 10:15 Dose: 5,000 unit Documented by: Levofloxacin (Levaquin) 750 mg in 150 mls @ 100 mls/hr IV Q48H [facility] Last Admin: 04/09/18 09:40 Dose: 100 mls/hr Documented by: Magnesium Sulfate (Magnesium Sulfate) 2 gm in 50 mls @ 50 mls/hr IV UD PRN PRN Reason: MG = or < 1.7 Sodium Chloride (Sodium Chloride 0.9%) 1,000 mls @ 50 mls/hr IV .Q20H [facility] Stop: 04/10/18 04:44 Last Admin: 04/08/18 20:23 Dose: 50 mls/hr Documented by: Acetaminophen (Ofirmev) 850 mg in 85 mls @ 170 mls/hr IV Q6HP PRN PRN Reason: PAIN/FEVER > 101 Last Infusion: 04/09/18 02:00 Dose: Infused Documented by: Iron Carb/Multivit/Iron Pourer/Folic Acid (Multivitamin W/Minerals) 1 tab PO DAILY [facility] Last Admin: 04/09/18 10:11 Dose: 1 tab Documented by: Losartan Potassium (Cozaar) 100 mg PO DAILY [facility] Last Admin: 04/09/18 10:11 Dose: 100 mg Documented by: Ondansetron HCl (Zofran) 4 mg IV Q4-6HP PRN PRN Reason: Nausea And Vomiting Fluticasone/Salmeterol [Advair Hfa] 115-21 Mcg Inhaler 2 dose INH BID [facility] Last Admin: 04/09/18 10:12 Dose: Not Given Documented by: Varenicline Tartrate ([Chantix]) 1 dose PO BID [facility] Last Admin: 04/09/18 10:12 Dose: Not Given Documented by: Potassium Chloride (Klor-Con) 40 meq PO DAILYP PRN PRN Reason: K+ < 3.5 Senna/Docusate Sodium (Senna Plus Tablet) 1 tab PO HS [facility] Last Admin: 04/08/18 20:37 Dose: Not Given Documented by: Sodium Chloride (Saline Flush) 10 ml IV Q8 [facility] Last Admin: 04/09/18 05:37 Dose: Not Given Documented by: Medical - PN: A/P - Time Spent With Patient Total time spent is greater than 50% in coordination of care (as documented) at patient's floor/unit and/or counseling patient: 25 - 35 minutes (1) Bilateral pneumonia Status: Acute Assessment and plan: * Bilateral pneumonia- clinical improvement noted. Continue level 3 nectar thick diet as per ST recommendations. Continue antibiotic coverage - cefepime/Levaquin. * Sepsis-sofa score 3. White count downtrending from 15.9-9.6. improving endorgan dysfunction. 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 Continue pulmonary toilet/bronchodilators * Acute mental status change secondary to pneumonia. Clinically improved * COPD exacerbation-secondary to above continue bronchodilators. * Anxiety depression stable on home meds * History of DVTs -continue anticoagulation on Coumadin * History of hypertension * Full CODE * Prophylaxis Coumadin Plan * Sepsis management per guidelines * Broad antibiotic coverage * Pre-existing medical condition management home meds * Rehab support/nutrition per ST/dietitian * Discharge Planning to SNF Current Visit: Yes
[2018-04-09] MEDS: 0.9 % SODIUM CHLORIDE 1,000 ML IV SCH (14:47)
[2018-04-09] MEDS: SENNOSIDES/DOCUSATE SODIUM 1 TAB TABLET PO SCH (21:36)
[2018-04-09] MEDS: ALPRAZolam 0.5 MG TABLET PO PRN (21:36)
[2018-04-10] MEDS: IPRATROPIUM/ALBUTEROL 3 ML AMPUL.NEB NEB SCH ×6 (04:39→23:09)
[2018-04-10] MEDS: 0.9 % SODIUM CHLORIDE 10 ML SYRINGE IV SCH ×3 (05:52→21:08)
[2018-04-10 06:46] LABS: Mean Cell Volume 92.6 fL (80.0-100.0); Mean Corpuscular HGB Conc 32.6 g/dL (31.0-36.0); Platelet Count 256 K/mcL (140-440); RBC 3.32 M/mcL (4.00-5.20); Red Cell Distribution Width 13.3 % (11.5-14.5)
[2018-04-10 07:13] LABS: ALT/SGPT 17 U/l (0-40); Albumin 2.7 gm/dL (3.2-5.2); Albumin/Globulin Ratio 0.8 (1.0-2.3); Alkaline Phosphatase 113 U/L (39-117); Bilirubin,Direct < 0.2 mg/dL (0.0-0.3); Blood Urea Nitrogen 20 mg/dl (8-23); Gamma Glutamyl Transpeptidase 31 U/L (5-36)
[2018-04-10 07:32] LABS: Eosinophils % (Manual) 2 % (0-7); Lymphocytes % 12 % (15-49); Monocytes % (Manual) 4 % (1-12); Platelet Estimate NORMAL (NORMAL); RBC Morphology NORMAL (NORMAL); Segmented Neutrophils % 82 % (38-78)
[2018-04-10] MEDS: BUDESONIDE 0.5 MG/2 ML AMPUL.NEB NEB SCH ×2 (07:32→20:46)
[2018-04-10] MEDS: FLUTICASONE INH SCH ×2 (09:40→21:09)
[2018-04-10] MEDS: SALMETEROL INH SCH ×2 (09:40→21:09)
[2018-04-10] MEDS: VARENICLINE TARTRATE PO SCH ×2 (09:42→21:09)
[2018-04-10] MEDS: CEFEPIME 1 GM VIAL IV SCH ×2 (09:42→21:09)
[2018-04-10] MEDS: FLUoxetine HCL 20 MG CAPSULE PO SCH (09:42)
[2018-04-10] MEDS: LOSARTAN 50 MG TABLET PO SCH (09:43)
[2018-04-10] MEDS: DOCUSATE SODIUM 100 MG CAPSULE PO SCH ×2 (09:43→21:09)
[2018-04-10] MEDS: FOLIC ACID 1 MG TABLET PO SCH (09:43)
[2018-04-10] MEDS: ASPIRIN 81 MG TAB.CHEW PO SCH (09:43)
[2018-04-10] MEDS: FAMOTIDINE 20 MG TABLET PO SCH ×2 (09:43→21:08)
[2018-04-10] MEDS: MULTIVIT,THER IRON,CA,FA & MIN 1 TABLET PO SCH (09:44)
[2018-04-10] MEDS: HEPARIN 5,000 UNIT/ML VIAL SQ SCH ×2 (09:44→21:08)
--- NOTE | 2018-04-10 11:47 | Internal Med Progress Note ---
Medical - PN: Subj Patient information: Note initiated : 04/10/18 at 11:34 am Service Date, if different from initiated Date: [] Patient: Argelia Baker a 77 y/o F admitted on 04/07/18 for weakness, confusion. Chief Complaint: [] Interval history: Ms. Baker is a 77 year old F with a known history of COPD/history of DVT on anticoagulation who presents from [facility] assisted living with worsening shortness of breath along with weakness, effort intolerance and in a confused state. Most of the history is obtained from review of medical record, no family members were present. Patient was initiated on oxygen/bronchodilators after initial imaging reveals bilateral pneumonia. Patient was started on antibiotics after cultures were drawn. Hospitalist service consulted At the time of evaluation patient has much improved and is alert and able to answer most questions. She is anxious and notably labored. She however does not know why she is in the hospital. She endorses to sick contacts at the living facility. She also has been experiencing chills without fever over the last couple of days. She denies diarrhea, dysuria, headache, photophobia or joint pain. She further denies chest pain but endorses to produce sputum. 04/08-patient doing a lot better. No overnight events. No concerns per staff. No fever chills nausea vomiting. White count downtrending from 15.9-14.3. CRP 22. CT chest patchy infiltrates bilateral. Continue empiric atypical coverage. Await strep pneumo/mycoplasma and sputum cultures. Continuous ST eval/aspiration precaution/PT OT 04/09-clinically much better than previous day. White count down from 15.9-9.6. Cultures negative so far. However getting remarkably response to antibiotics with downtrending white count and improving sepsis will continue course. No overnight fever chills. Currently on 2 L oxygen. Level 3 nectar thick aspirate his knee. Patient demonstrated waxing and waning mental status. Case management to coordinate safe discharge planning likely SNF as she would be high risk returning back to [place] state. 04/10-doing well. No night events. No concerns per staff. No fever chills. Ongoing rehab. White count 6.7. On 1L oxygen. T-max 99.1. Tolerating diet and therapies - Constitutional Vitals: Vital Signs Temp Pulse Resp BP Pulse Ox 98.2 F 73 18 134/66 95 04/10/18 04:00 04/10/18 07:32 04/10/18 07:32 04/10/18 04:00 04/10/18 07:32 Period Temp Pulse Resp BP Sys/Giordano Pulse Ox Last 24 Hr 98.2 F-99.1 F 73-81 18-20 105-144/53-75 92-97 Intake and Output 04/09/18 04/10/18 04/10/18 21:59 05:59 13:59 Intake Total 1040 150 Output Total 2 Balance 1038 150 Weight 127 lb 8 oz Intake & Output: Intake & Output 04/09/18 04/10/18 04/10/18 21:59 05:59 13:59 Intake Total 1040 150 Output Total 2 Balance 1038 150 Weight 127 lb 8 oz Intake: IV 920 Sodium Chloride 0.9% 1,000 ml @ 920 50 mls/hr IV .Q20H [facility] Rx#: [id number] Oral 120 150 Output: # of times incontinent of urine 2 Other: Meal Dinner Percent of Meal Consumed 75% Feeding Ability Assist with Tray Set Up General appearance: no acute distress Exam: Doing well. Alert oriented No anxiety Ambulating with assistance No labored breathing on 1 L oxygen Medical - PN: Obj Da - Labs CBC & Chem 7: 04/10/18 03:16 04/10/18 03:16 Labs: Abnormal Lab Results 04/10/18 04/10/18 04/09/18 03:16 03:16 03:13 WBC RBC 3.32 L Hgb 10.0 L Hct 30.7 L Gran % Lymph % (Auto) Gran # Lymph # (Auto) Seg Neutrophils % 82 H Lymphocytes % 12 L ESR BUN 28 H Glucose Calcium 8.5 L 8.5 L GGT Alkaline Phosphatase Lactate Dehydrogenase C-Reactive Protein Albumin 2.7 L 2.7 L Albumin/Globulin Ratio 0.8 L 0.8 L Urine Protein Urine Ketones Urine Urobilinogen Urine RBC Urine Mucus 04/09/18 04/08/18 04/08/18 03:13 03:40 03:40 WBC 14.3 H RBC 3.34 L 3.70 L Hgb 10.1 L 11.2 L Hct 31.3 L 34.2 L Gran % Lymph % (Auto) Gran # Lymph # (Auto) Seg Neutrophils % 80 H 89 H Lymphocytes % 13 L 8 L ESR 80 H BUN 28 H Glucose 106 H Calcium GGT 38 H Alkaline Phosphatase 139 H Lactate Dehydrogenase 283 H C-Reactive Protein 22.4 H Albumin 2.9 L Albumin/Globulin Ratio 0.8 L Urine Protein Urine Ketones Urine Urobilinogen Urine RBC Urine Mucus 04/07/18 04/07/18 04/07/18 13:09 12:18 12:18 WBC 15.9 H RBC Hgb Hct Gran % 90.3 H Lymph % (Auto) 4.6 L Gran # 14.4 H Lymph # (Auto) 0.7 L Seg Neutrophils % Lymphocytes % ESR BUN Glucose 144 H Calcium GGT Alkaline Phosphatase 151 H Lactate Dehydrogenase C-Reactive Protein Albumin Albumin/Globulin Ratio Urine Protein 100 A Urine Ketones 20 A Urine Urobilinogen 4.0 A Urine RBC 2 H Urine Mucus Many A Meds: Medications Acetaminophen (Tylenol) 650 mg PO Q4-6HP PRN PRN Reason: PAIN/FEVER > 101 Last Admin: 04/09/18 11:11 Dose: 650 mg Documented by: Albuterol Sulfate (Ventolin) 1 - 2 puff INH Q4-6HP PRN PRN Reason: Shortness Of Breath Albuterol/Ipratropium (Duoneb) 3 ml NEB Q4HRT [facility] Last Admin: 04/10/18 07:30 Dose: 3 ml Documented by: Alprazolam (Xanax) 0.5 mg PO HSP PRN PRN Reason: Insomnia Last Admin: 04/09/18 21:36 Dose: 0.5 mg Documented by: Aspirin (Aspirin) 81 mg PO DAILY [facility] Last Admin: 04/10/18 09:43 Dose: 81 mg Documented by: Budesonide (Pulmicort) 0.5 mg NEB Q12 [facility] Last Admin: 04/10/18 07:32 Dose: 0.5 mg Documented by: Cefepime HCl (Maxipime) 1 gm IV Q12H [facility] Last Admin: 04/10/18 09:42 Dose: 1 gm Documented by: Docusate Sodium (Colace) 100 mg PO BID [facility] Last Admin: 04/10/18 09:43 Dose: 100 mg Documented by: Famotidine (Pepcid) 20 mg PO BID [facility] Last Admin: 04/10/18 09:43 Dose: 20 mg Documented by: Fluoxetine HCl (Prozac) 60 mg PO QDAY [facility] Last Admin: 04/10/18 09:42 Dose: 60 mg Documented by: Fluticasone Propionate (Flovent Hfa 110mcg) 3 puff INH BIDP PRN PRN Reason: sob Folic Acid (Folic Acid) 1 mg PO QDAY [facility] Last Admin: 04/10/18 09:43 Dose: 1 mg Documented by: Guaifenesin/Codeine Phosphate (Robitussin Ac) 10 ml PO Q4HP PRN PRN Reason: Cough Heparin Sodium (Porcine) (Heparin) 5,000 unit SQ Q12 [facility] Last Admin: 04/10/18 09:44 Dose: 5,000 unit Documented by: Levofloxacin (Levaquin) 750 mg in 150 mls @ 100 mls/hr IV Q48H [facility] Last Infusion: 04/09/18 11:10 Dose: Infused Documented by: Magnesium Sulfate (Magnesium Sulfate) 2 gm in 50 mls @ 50 mls/hr IV UD PRN PRN Reason: MG = or < 1.7 Acetaminophen (Ofirmev) 850 mg in 85 mls @ 170 mls/hr IV Q6HP PRN PRN Reason: PAIN/FEVER > 101 Last Infusion: 04/09/18 02:00 Dose: Infused Documented by: Iron Carb/Multivit/[place]/Folic Acid (Multivitamin W/Minerals) 1 tab PO DAILY [facility] Last Admin: 04/10/18 09:44 Dose: 1 tab Documented by: Losartan Potassium (Cozaar) 100 mg PO DAILY [facility] Last Admin: 04/10/18 09:43 Dose: 100 mg Documented by: Ondansetron HCl (Zofran) 4 mg IV Q4-6HP PRN PRN Reason: Nausea And Vomiting Fluticasone/Salmeterol [Advair Hfa] 115-21 Mcg Inhaler 2 dose INH BID [facility] Last Admin: 04/09/18 21:35 Dose: 2 dose Documented by: Varenicline Tartrate ([Chantix]) 1 dose PO BID [facility] Last Admin: 04/10/18 09:42 Dose: 1 dose Documented by: Potassium Chloride (Klor-Con) 40 meq PO DAILYP PRN PRN Reason: K+ < 3.5 Senna/Docusate Sodium (Senna Plus Tablet) 1 tab PO HS [facility] Last Admin: 04/09/18 21:36 Dose: 1 tab Documented by: Sodium Chloride (Saline Flush) 10 ml IV Q8 [facility] Last Admin: 04/10/18 05:52 Dose: Not Given Documented by: Medical - PN: A/P - Time Spent With Patient Total time spent is greater than 50% in coordination of care (as documented) at patient's floor/unit and/or counseling patient: 15 - 24 minutes (1) Bilateral pneumonia Status: Acute Assessment and plan: * Bilateral pneumonia- clinical improvement noted. Continue diet as per ST recommendations. - cefepime/Levaquin through 04/15 * Sepsis-sofa score 3. White count downtrending from 15.9-6.7. endorgan dysfunction resolved. 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 Continue pulmonary toilet/bronchodilators * Acute mental status change secondary to pneumonia. Clinically back at baseline * COPD exacerbation-clinically improved. Continue bronchodilators. * Anxiety depression stable on home meds * History of DVTs -off Coumadin. Continue prophylaxis on heparin * History of hypertension * Full CODE * Prophylaxis-heparin Plan * Sepsis management per guidelines * Antibiotics through 04/15 * Pre-existing medical condition management home meds * Rehab support/nutrition per ST/dietitian * Possible discharge in 24 hours Current Visit: Yes
[2018-04-10] MEDS: ALPRAZolam 0.5 MG TABLET PO PRN (21:08)
[2018-04-10] MEDS: SENNOSIDES/DOCUSATE SODIUM 1 TAB TABLET PO SCH (21:08)
[2018-04-11] MEDS: ACETAMINOPHEN 850 MG/85 ML BOTTLE IV PRN (03:37)
[2018-04-11] MEDS: IPRATROPIUM/ALBUTEROL 3 ML AMPUL.NEB NEB SCH ×6 (03:37→23:25)
[2018-04-11] MEDS: 0.9 % SODIUM CHLORIDE 10 ML SYRINGE IV SCH ×3 (05:29→21:50)
[2018-04-11 06:15] LABS: Mean Corpuscular HGB Conc 32.4 g/dL (31.0-36.0); Platelet Count 268 K/mcL (140-440); RBC 3.47 M/mcL (4.00-5.20)
[2018-04-11 06:38] LABS: ALT/SGPT 16 U/l (0-40); Albumin 2.7 gm/dL (3.2-5.2); Albumin/Globulin Ratio 0.8 (1.0-2.3); Alkaline Phosphatase 111 U/L (39-117); Bilirubin,Direct < 0.2 mg/dL (0.0-0.3); Blood Urea Nitrogen 13 mg/dl (8-23); Gamma Glutamyl Transpeptidase 31 U/L (5-36); Uric Acid 2.6 mg/dL (2.5-8.0)
[2018-04-11 08:25] LABS: Eosinophils % (Manual) 4 % (0-7); Hypochromasia FEW (NONE SEEN); Lymphocytes % 19 % (15-49); Monocytes % (Manual) 9 % (1-12); Platelet Estimate NORMAL (NORMAL); RBC Morphology ABNORM (NORMAL); Segmented Neutrophils % 67 % (38-78)
[2018-04-11] MEDS: LEVOFLOXACIN 750 MG/150 ML BAG IV SCH (09:04)
[2018-04-11] MEDS: SALMETEROL INH SCH ×2 (09:04→21:42)
[2018-04-11] MEDS: FLUTICASONE INH SCH ×2 (09:04→21:42)
[2018-04-11] MEDS: DOCUSATE SODIUM 100 MG CAPSULE PO SCH ×2 (09:05→21:41)
[2018-04-11] MEDS: FLUoxetine HCL 20 MG CAPSULE PO SCH (09:05)
[2018-04-11] MEDS: HEPARIN 5,000 UNIT/ML VIAL SQ SCH ×2 (09:05→21:41)
[2018-04-11] MEDS: ASPIRIN 81 MG TAB.CHEW PO SCH (09:06)
[2018-04-11] MEDS: MULTIVIT,THER IRON,CA,FA & MIN 1 TABLET PO SCH (09:06)
[2018-04-11] MEDS: LOSARTAN 50 MG TABLET PO SCH (09:06)
[2018-04-11] MEDS: FAMOTIDINE 20 MG TABLET PO SCH ×2 (09:06→21:41)
[2018-04-11] MEDS: FOLIC ACID 1 MG TABLET PO SCH (09:06)
[2018-04-11] MEDS: BUDESONIDE 0.5 MG/2 ML AMPUL.NEB NEB SCH ×2 (09:08→19:40)
[2018-04-11] MEDS: VARENICLINE TARTRATE PO SCH ×2 (09:15→21:41)
[2018-04-11] MEDS: CEFEPIME 1 GM VIAL IV SCH ×2 (09:15→21:50)
--- NOTE | 2018-04-11 10:34 | Internal Med Progress Note ---
Medical - PN: Subj Patient information: Note initiated : 04/11/18 at 10:30 am Service Date, if different from initiated Date: [] Patient: Argelia Baker a 77 y/o F admitted on 04/07/18 for weakness, confusion. Chief Complaint: [] Interval history: Ms. Baker is a 77 year old F with a known history of COPD/history of DVT on anticoagulation who presents from [facility] assisted living with worsening shortness of breath along with weakness, effort intolerance and in a confused state. Most of the history is obtained from review of medical record, no family members were present. Patient was initiated on oxygen/bronchodilators after initial imaging reveals bilateral pneumonia. Patient was started on antibiotics after cultures were drawn. Hospitalist service consulted At the time of evaluation patient has much improved and is alert and able to answer most questions. She is anxious and notably labored. She however does not know why she is in the hospital. She endorses to sick contacts at the living facility. She also has been experiencing chills without fever over the last couple of days. She denies diarrhea, dysuria, headache, photophobia or joint pain. She further denies chest pain but endorses to produce sputum. 04/08-patient doing a lot better. No overnight events. No concerns per staff. No fever chills nausea vomiting. White count downtrending from 15.9-14.3. CRP 22. CT chest patchy infiltrates bilateral. Continue empiric atypical coverage. Await strep pneumo/mycoplasma and sputum cultures. Continuous ST eval/aspiration precaution/PT OT 04/09-clinically much better than previous day. White count down from 15.9-9.6. Cultures negative so far. However getting remarkably response to antibiotics with downtrending white count and improving sepsis will continue course. No overnight fever chills. Currently on 2 L oxygen. Level 3 nectar thick aspirate his knee. Patient demonstrated waxing and waning mental status. Case management to coordinate safe discharge planning likely SNF as she would be high risk returning back to [place] state. 04/10-doing well. No night events. No concerns per staff. No fever chills. Ongoing rehab. White count 6.7. On 1L oxygen. T-max 99.1. Tolerating diet and therapies 04/11-persistent hypoxia however improved now on 1 L oxygen. Recent imaging persistent interstitial pneumonia. Continue antibiotic coverage. Continue rehab support. Possible discharge in 24 hours. No overnight fever chills or concerns per staff. No telemetry events. - Constitutional Vitals: Vital Signs Temp Pulse Resp BP Pulse Ox 98.5 F 67 16 127/65 95 04/11/18 08:00 04/11/18 09:12 04/11/18 09:12 04/11/18 08:00 04/11/18 08:00 Period Temp Pulse Resp BP Sys/Giordano Pulse Ox Last 24 Hr 98.5 F-100.5 F 67-85 14-20 127-150/62-71 92-98 Intake and Output 04/10/18 04/11/18 04/11/18 21:59 05:59 13:59 Intake Total 520 85 Output Total 2 Balance 518 85 Weight 126 lb 8 oz Intake & Output: Intake & Output 04/10/18 04/11/18 04/11/18 21:59 05:59 13:59 Intake Total 520 85 Output Total 2 Balance 518 85 Weight 126 lb 8 oz Intake: IV 85 Oral 520 Output: # of times incontinent of urine 2 Other: Stool Size Smear Stool Color Brown Stool Consistency Loose # of times incontinent of 1 Bowels General appearance: no acute distress Exam: Appears weak and fatigued however alert and cooperative On 1 L oxygen nonlabored breathing No anxiety No lymphedema Medical - PN: Obj Da - Labs CBC & Chem 7: 04/11/18 03:18 04/11/18 03:18 Labs: Abnormal Lab Results 04/11/18 04/11/18 04/10/18 03:18 03:18 03:16 RBC 3.47 L Hgb 10.4 L Hct 32.2 L Seg Neutrophils % Lymphocytes % RBC Morphology Abnorm A Polychromasia 1+ A Hypochromasia Few A BUN Calcium 8.5 L Albumin 2.7 L 2.7 L Albumin/Globulin Ratio 0.8 L 0.8 L 04/10/18 04/09/18 04/09/18 03:16 03:13 03:13 RBC 3.32 L 3.34 L Hgb 10.0 L 10.1 L Hct 30.7 L 31.3 L Seg Neutrophils % 82 H 80 H Lymphocytes % 12 L 13 L RBC Morphology Polychromasia Hypochromasia BUN 28 H Calcium 8.5 L Albumin 2.7 L Albumin/Globulin Ratio 0.8 L Meds: Medications Acetaminophen (Tylenol) 650 mg PO Q4-6HP PRN PRN Reason: PAIN/FEVER > 101 Last Admin: 04/09/18 11:11 Dose: 650 mg Documented by: Albuterol Sulfate (Ventolin) 1 - 2 puff INH Q4-6HP PRN PRN Reason: Shortness Of Breath Albuterol/Ipratropium (Duoneb) 3 ml NEB Q4HRT [facility] Last Admin: 04/11/18 09:08 Dose: 3 ml Documented by: Alprazolam (Xanax) 0.5 mg PO HSP PRN PRN Reason: Insomnia Last Admin: 04/10/18 21:08 Dose: 0.5 mg Documented by: Aspirin (Aspirin) 81 mg PO DAILY [facility] Last Admin: 04/11/18 09:06 Dose: 81 mg Documented by: Budesonide (Pulmicort) 0.5 mg NEB Q12 [facility] Last Admin: 04/11/18 09:08 Dose: 0.5 mg Documented by: Cefepime HCl (Maxipime) 1 gm IV Q12H [facility] Last Admin: 04/11/18 09:15 Dose: 1 gm Documented by: Docusate Sodium (Colace) 100 mg PO BID [facility] Last Admin: 04/11/18 09:05 Dose: 100 mg Documented by: Famotidine (Pepcid) 20 mg PO BID [facility] Last Admin: 04/11/18 09:06 Dose: 20 mg Documented by: Fluoxetine HCl (Prozac) 60 mg PO QDAY [facility] Last Admin: 04/11/18 09:05 Dose: 60 mg Documented by: Fluticasone Propionate (Flovent Hfa 110mcg) 3 puff INH BIDP PRN PRN Reason: sob Folic Acid (Folic Acid) 1 mg PO QDAY [facility] Last Admin: 04/11/18 09:06 Dose: 1 mg Documented by: Guaifenesin/Codeine Phosphate (Robitussin Ac) 10 ml PO Q4HP PRN PRN Reason: Cough Heparin Sodium (Porcine) (Heparin) 5,000 unit SQ Q12 [facility] Last Admin: 04/11/18 09:05 Dose: 5,000 unit Documented by: Levofloxacin (Levaquin) 750 mg in 150 mls @ 100 mls/hr IV Q48H [facility] Last Admin: 04/11/18 09:04 Dose: 100 mls/hr Documented by: Magnesium Sulfate (Magnesium Sulfate) 2 gm in 50 mls @ 50 mls/hr IV UD PRN PRN Reason: MG = or < 1.7 Last Admin: 04/11/18 07:30 Dose: 50 mls/hr Documented by: Acetaminophen (Ofirmev) 850 mg in 85 mls @ 170 mls/hr IV Q6HP PRN PRN Reason: PAIN/FEVER > 101 Last Infusion: 04/11/18 05:24 Dose: Infused Documented by: Iron Carb/Multivit/[employer]/Folic Acid (Multivitamin W/Minerals) 1 tab PO DAILY [facility] Last Admin: 04/11/18 09:06 Dose: 1 tab Documented by: Losartan Potassium (Cozaar) 100 mg PO DAILY [facility] Last Admin: 04/11/18 09:06 Dose: 100 mg Documented by: Ondansetron HCl (Zofran) 4 mg IV Q4-6HP PRN PRN Reason: Nausea And Vomiting Fluticasone/Salmeterol [Advair Hfa] 115-21 Mcg Inhaler 2 dose INH BID [facility] Last Admin: 04/11/18 09:04 Dose: 2 dose Documented by: Varenicline Tartrate ([Chantix]) 1 dose PO BID [facility] Last Admin: 04/11/18 09:15 Dose: Not Given Documented by: Potassium Chloride (Klor-Con) 40 meq PO DAILYP PRN PRN Reason: K+ < 3.5 Senna/Docusate Sodium (Senna Plus Tablet) 1 tab PO HS [facility] Last Admin: 04/10/18 21:08 Dose: 1 tab Documented by: Sodium Chloride (Saline Flush) 10 ml IV Q8 [facility] Last Admin: 04/11/18 05:29 Dose: 10 ml Documented by: Medical - PN: A/P - Time Spent With Patient Total time spent is greater than 50% in coordination of care (as documented) at patient's floor/unit and/or counseling patient: 25 - 35 minutes (1) Bilateral pneumonia Status: Acute Assessment and plan: * Bilateral pneumonia-interstitial pattern on repeat imaging 04/09. Clinically improving. Continue diet as per ST recommendations. Continue cefepime/Levaquin through 04/15 * Sepsis-sofa score 3. White count normalized from 15.9-6.7. endorgan dysfunction resolved. 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 Currently on 1 L oxygen. Continue pulmonary toilet/bronchodilators * Acute mental status change secondary to pneumonia. Clinically back at baseline * COPD exacerbation-clinically improved. Continue bronchodilators. * Anxiety depression stable on home meds * History of DVTs -was off Coumadin at the assisted living(exact date of discontinuation unavailable) continue prophylaxis on heparin * History of hypertension * Full CODE Plan * Antibiotics through 04/15 * Continue rehab/nutrition support * Pre-existing medical condition management home meds * Aspiration precaution * Discharge once clinically near baseline Current Visit: Yes
[2018-04-11] MEDS: ACETAMINOPHEN 325 MG TABLET PO PRN (16:49)
[2018-04-11] MEDS: SENNOSIDES/DOCUSATE SODIUM 1 TAB TABLET PO SCH (21:41)
[2018-04-11] MEDS: ALPRAZolam 0.5 MG TABLET PO PRN (21:43)
[2018-04-12 05:06] LABS: Mean Cell Volume 93.4 fL (80.0-100.0); Mean Corpuscular HGB Conc 32.2 g/dL (31.0-36.0); Platelet Count 278 K/mcL (140-440); RBC 3.54 M/mcL (4.00-5.20); Red Cell Distribution Width 13.3 % (11.5-14.5)
[2018-04-12 05:13] LABS: ALT/SGPT 15 U/l (0-40); Albumin 2.7 gm/dL (3.2-5.2); Albumin/Globulin Ratio 0.7 (1.0-2.3); Alkaline Phosphatase 114 U/L (39-117); Bilirubin,Direct < 0.2 mg/dL (0.0-0.3); Blood Urea Nitrogen 15 mg/dl (8-23); Gamma Glutamyl Transpeptidase 30 U/L (5-36); Uric Acid 2.5 mg/dL (2.5-8.0)
[2018-04-12] MEDS: IPRATROPIUM/ALBUTEROL 3 ML AMPUL.NEB NEB SCH ×3 (05:40→11:16)
[2018-04-12 06:53] LABS: Band Neutrophils % 1 % (0-10); Basophils % (Manual) 1 % (0-2); Eosinophils % (Manual) 4 % (0-7); Lymphocytes % 15 % (15-49); Monocytes % (Manual) 5 % (1-12); Platelet Estimate NORMAL (NORMAL); RBC Morphology NORMAL (NORMAL); Segmented Neutrophils % 74 % (38-78)
[2018-04-12] MEDS: 0.9 % SODIUM CHLORIDE 10 ML SYRINGE IV SCH (09:12)
[2018-04-12] MEDS: MULTIVIT,THER IRON,CA,FA & MIN 1 TABLET PO SCH (09:13)
[2018-04-12] MEDS: HEPARIN 5,000 UNIT/ML VIAL SQ SCH (09:13)
[2018-04-12] MEDS: ASPIRIN 81 MG TAB.CHEW PO SCH (09:13)
[2018-04-12] MEDS: FLUoxetine HCL 20 MG CAPSULE PO SCH (09:13)
[2018-04-12] MEDS: DOCUSATE SODIUM 100 MG CAPSULE PO SCH (09:13)
[2018-04-12] MEDS: FOLIC ACID 1 MG TABLET PO SCH (09:13)
[2018-04-12] MEDS: LOSARTAN 50 MG TABLET PO SCH (09:13)
[2018-04-12] MEDS: FAMOTIDINE 20 MG TABLET PO SCH (09:13)
[2018-04-12] MEDS: CEFEPIME 1 GM VIAL IV SCH (09:18)
[2018-04-12] MEDS: FLUTICASONE INH SCH (10:07)
[2018-04-12] MEDS: VARENICLINE TARTRATE PO SCH (10:07)
[2018-04-12] MEDS: SALMETEROL INH SCH (10:07)
--- NOTE | 2018-04-12 11:08 | Discharge Summary ---
Medical - DS: Prov Patient information: Note initiated : 04/12/18 at 11:06 am Service Date, if different from initiated Date: [] Patient: Argelia Baker 77 y/o F admitted on 04/07/18 for weakness, confusion. Chief Complaint: [] Date of admission: 04/07/18 16:15 Discharge date: 04/12/18 Primary care physician: Ag Charles Consults: 04/07/18 Consult to Physician [CONS] Stat Comment: T5 Consulting Provider: Shakir Kern Reason For Exam: Physician to Consult Medical - DS: Meds - Discharge Medications Prescriptions: Cefdinir 300 mg PO BID #6 cap Levofloxacin [Levaquin] 750 mg PO DAILY #3 tab Active and Home Medications: Home Medications fluticasone-salmeterol 115 mcg-21 mcg/actuation HFA aerosol inhaler 2 inh INHALATION Q12H #12 g 03/14/17 [Rx Confirmed 04/08/18 Last Taken 04/07/18 09:00] famotidine 20 mg tablet 20 mg PO BID #180 tab 08/02/17 [Rx Confirmed 04/08/18 Last Taken 04/07/18 09:00] fluoxetine 20 mg capsule 60 mg PO QDAY #90 cap 08/08/17 [Rx Confirmed 04/08/18 Last Taken 04/07/18 09:00] folic acid 1 mg tablet 1 mg PO QDAY #90 tab 09/06/17 [Rx Confirmed 04/08/18 Last Taken 04/07/18 09:00] Acetaminophen [Acetaminophen ER] 650 mg PO Q6HP PRN 11/09/17 [History Confirmed 04/08/18 Last Taken 04/06/18 15:37] Fluticasone Hfa 110Mcg [Flovent Hfa 110Mcg] 3 puff INH BIDP PRN 11/09/17 [History Confirmed 04/08/18 Last Taken Unknown] Losartan Potassium [Cozaar] 100 mg PO QDAY 11/09/17 [History Confirmed 04/08/18 Last Taken 04/07/18 08:00] Proair Hfa 1 - 2 puff INH Q4-6HP PRN 11/09/17 [History Confirmed 04/08/18 Last Taken Unknown] Varenicline Tartrate [Chantix] 1 tab PO BID 11/09/17 [History Confirmed 04/08/18 Last Taken 04/07/18 09:00] Docusate Sodium [Colace] 100 mg PO BID #60 cap 11/13/17 [Rx Confirmed 04/08/18 Last Taken 04/07/18 09:00] ALPRAZolam [Xanax] 0.5 mg PO QHS #30 tab 11/14/17 [Rx Confirmed 04/08/18 Last Taken 04/06/18 21:00] Multivitamin [One Daily] 1 each PO DAILY #90 tab 11/14/17 [Rx Confirmed 04/08/18 Last Taken 04/07/18 09:00] Aspirin [Adult Aspirin] 81 mg PO DAILY 04/08/18 [History Confirmed 04/08/18 Last Taken 04/07/18 08:00] Epsom Salt 1 each TOPICAL PRN PRN 04/08/18 [History Confirmed 04/08/18 Last Taken Unknown] HYDROcodone/APAP 5/325MG [[place] 5-325Mg] 1 - 2 tab PO Q4HP PRN 04/08/18 [History Confirmed 04/08/18 Last Taken Unknown] Ipratropium/Albuterol Sulfate [Iprat-Albut 0.5-3(2.5) mg/3 ml] 3 ml IH Q4HP PRN 04/08/18 [History Confirmed 04/08/18 Last Taken Unknown] Cefdinir 300 mg PO BID #6 cap 04/12/18 [Rx Last Taken Unknown] Levofloxacin [Levaquin] 750 mg PO DAILY #3 tab 04/12/18 [Rx Last Taken Unknown] Medical - DS: Hosp Hospital course: Discharge diagnosis * Bilateral pneumonia-interstitial pattern on repeat imaging 04/09. Clinically improving. Continue diet as per ST recommendations. Discharging today with oral antibiotic through 04/15. * Sepsis-sofa score 3. Clinically resolved. White count normalized from 15.9-6.7. 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 Currently on 1 L oxygen. Prior to discharge we will perform exercise oximetry and if indicated will discharge on home oxygen * Acute mental status change secondary to pneumonia. Clinically back at baseline * COPD exacerbation-clinically improved. Managed on bronchodilators. 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 Baker is a 77 year old F with a known history of COPD/history of DVT on anticoagulation who presents from [facility] with worsening shortness of breath along with weakness, effort intolerance and in a confused state. Most of the history is obtained from review of medical record, no family members were present. Patient was initiated on oxygen/bronchodilators after initial imaging reveals bilateral pneumonia. Patient was started on antibiotics after cultures were drawn. Hospitalist service consulted At the time of evaluation patient has much improved and is alert and able to answer most questions. She is anxious and notably labored. She however does not know why she is in the hospital. She endorses to sick contacts at the living facility. She also has been experiencing chills without fever over the last couple of days. She denies diarrhea, dysuria, headache, photophobia or joint pain. She further denies chest pain but endorses to produce sputum. 04/08-patient doing a lot better. No overnight events. No concerns per staff. No fever chills nausea vomiting. White count downtrending from 15.9-14.3. CRP 22. CT chest patchy infiltrates bilateral. Continue empiric atypical coverage. Await strep pneumo/mycoplasma and sputum cultures. Continuous ST eval/aspiration precaution/PT OT 04/09-clinically much better than previous day. White count down from 15.9-9.6. Cultures negative so far. However getting remarkably response to antibiotics with downtrending white count and improving sepsis will continue course. No overnight fever chills. Currently on 2 L oxygen. Level 3 nectar thick aspirate his knee. Patient demonstrated waxing and waning mental status. Case management to coordinate safe discharge planning likely SNF as she would be high risk returning back to [facility]. 04/10-doing well. No night events. No concerns per staff. No fever chills. Ongoing rehab. White count 6.7. On 1L oxygen. T-max 99.1. Tolerating diet and therapies 04/11-persistent hypoxia however improved now on 1 L oxygen. Recent imaging persistent interstitial pneumonia. Continue antibiotic coverage. Continue rehab support. Possible discharge in 24 hours. No overnight fever chills or concerns per staff. No telemetry events. 04/12-patient doing a lot better. Ongoing physical therapy. On monitor oxygen. Discharging today with advised to continue antibiotic for additional 3 days and continue aspiration precautions. Continue diet per ST recommendations. Detailed discharge instructions as below. Patient is now nearly baseline and feeling a lot better since admission Discharge diagnosis: . - Time Spent with Patient Total time spent providing and/or coordinating discharge services: Greater than 30 minutes Medical - DS: Exam - Constitutional Vitals: Vital Signs Temp Pulse Pulse Resp BP BP Pulse Ox 04/12/18 07:53 73 18 04/12/18 06:30 98.5 F 16 160/90 91 04/12/18 04:00 60 18 94 04/12/18 00:00 82 16 128/78 95 04/11/18 23:27 80 16 04/11/18 20:00 98.8 F 80 18 130/68 93 04/11/18 19:43 92 04/11/18 19:42 73 18 04/11/18 16:19 73 18 04/11/18 16:00 100.1 F H 76 19 122/62 94 04/11/18 12:00 98.0 F 76 16 106/57 93 Intake and Output 04/11/18 04/12/18 04/12/18 21:59 05:59 13:59 Intake Total 300 300 Balance 300 300 Intake: Oral 300 300 Other: Meal Breakfast Percent of Meal Consumed 75% Weight 127 lb Medical - DS: Data Labs on day of discharge: Labs from last 24 hours 04/12/18 04/12/18 04/12/18 03:19 03:19 03:19 WBC 7.4 RBC 3.54 L Hgb 10.6 L Hct 33.0 L MCV 93.4 MCH 30.0 MCHC 32.2 RDW 13.3 Plt Count 278 MPV 7.6 Total Counted 100 Seg Neutrophils % 74 Band Neutrophils % 1 Lymphocytes % 15 Monocytes % (Manual) 5 Eosinophils % (Manual) 4 Basophils % (Manual) 1 Platelet Estimate Normal RBC Morphology Normal PT 13.9 INR 1.1 Sodium 136 Potassium 4.0 Chloride 100 Carbon Dioxide 25 Anion Gap 11.0 BUN 15 Creatinine 0.7 GFR Calculation 85 Glucose 103 Uric Acid 2.5 Calcium 8.7 Phosphorus 3.9 Magnesium 1.8 Total Bilirubin 0.4 Direct Bilirubin < 0.2 GGT 30 AST 17 ALT 15 Alkaline Phosphatase 114 Lactate Dehydrogenase 250 Total Protein 6.4 Albumin 2.7 L Globulin 3.7 Albumin/Globulin Ratio 0.7 L Triglycerides 68 Preliminary micro results at discharge 04/07/18 15:53 Blood Culture - Preliminary Blood 04/07/18 15:42 Blood Culture - Preliminary Blood Medical - DS: A/P - Patient/Caregiver Discharge Instructions Activity: as per physical therapy Diet: Regular Diet (Diet per ST recommendation) Additional Instructions: Follow-up PCP in 5 days I recommend PCP to check CBC/CMP and a chest x-ray in 1 week for interval evaluation Continue aspiration precaution Antibiotics for additional 3 days oxygen @to keep sats above 92%. Exercise oximetry per RT prior to discharge Continue aggressive bowel regimen to prevent constipation Continue fall precautions Continue aggressive PT OT evaluation and treatment at SNF. ST eval and treatment if indicated (recent aspiration) All meals on chair sitting upright at 90 degrees to prevent aspiration Return to ER if worsening fever chills shortness of breath, diarrhea, bleeding Review risk and side effect profile of medications including antibiotics. Side effect may include mild to severe reaction including rash, diarrhea, cdiff and even which can be prevented by close follow-up with PCP and monitoring for side effects Continue diet and activity as advised Discussed importance of medication adherence Please review medication list with patient prior to discharge Please schedule follow-up with PCP/Providers prior to discharge and provide printouts Prescriptions: Cefdinir 300 mg PO BID #6 cap Levofloxacin [Levaquin] 750 mg PO DAILY #3 tab - Follow up Plan Follow up with: Ag Charles MD [Primary Care Provider] - Disposition: Home Health Service Prognosis: Fair Rehab Potential: Fair I certify that the patient requires SNF services: No Overall status at discharge: patient is progressing back to baseline
[2018-04-12] MEDS: BUDESONIDE 0.5 MG/2 ML AMPUL.NEB NEB SCH (11:17)
== END 2018-04-12 13:30 | disposition home health service (06) | DRG 871 ==
LOC: ED 11:35 → MEDSUR 16:15 → ICU 18:30
PROVIDERS: ADMIT Internal Medicine; ATTEND Internal Medicine